=== PATIENT | male | born 1970 | race American Indian/Alaskan Native ===

== ENCOUNTER 2017-02-24 10:41 | Emergency (ER) | payer SELFPAY ==
[~2017-02-24] VITALS: Ht 185.4 cm; Wt 96.0 kg
[2017-02-24 10:57] VITALS: BP 140/95
== END 2017-02-24 15:08 | disposition left against medical advice (07) ==
LOC: ER 12:11
DX: M79.602 Pain in left arm (principal); Z53.21 Procedure and treatment not carried out due to patient leaving prior to being seen by health care provider